=== PATIENT | male | born 1945 | race Caucasian/White ===

== ENCOUNTER 2019-12-12 08:47 | Outpatient (CLI) | payer MEDICARE, SELFPAY ==
--- NOTE | ~2019-12-12 | US_ITS ---
EXAMINATION: US aorta DATE: 12/12/2019 09:53 CDT INDICATION: Abdominal aortic aneurysm screening. Hypertension. Diabetes. High cholesterol. TECHNIQUE: Grayscale, color Doppler, and pulsed Doppler images of the aorta and common iliac arteries were obtained. COMPARISON: None. FINDINGS: The proximal aorta measures 2 cm greatest sagittal dimension. The mid aorta measures 2 cm greatest sa gittal dimension. The distal aorta measures 2 cm greatest sagittal dimension. The right common regulatory internship al iliac artery measures 1.5 cm. The left common iliac artery measures 1.3 cm. IMPRESSION: 1. Normal caliber aorta without evidence for aneurysm. Reviewed, dictated and finalized at [facility].
== END 2019-12-12 08:48 | disposition home or self-care (01) ==
PROVIDERS: PCP Family Medicine; Visit Provider Family Medicine
DX: Z13.6 Encounter for screening for cardiovascular disorders (principal)
CPT/HCPCS: 76775

== ENCOUNTER 2020-11-25 13:49 | Outpatient (CLI) | payer MEDICARE, SELFPAY ==
--- NOTE | ~2020-11-25 | CT_ITS ---
EXAMINATION: CT abdomen pelvis wo con DATE: 11/25/2020 14:14 INDICATION: Bilateral flank pain for 4 to 5 months TECHNIQUE: Computed tomography (CT) of the abdomen and pelvis was performed without intravenous contr ast. Automated exposure control and iterative reconstruction technique were employed. Exam dose: 285 .40 mGy-cm total exam DLP. COMPARISON: None. FINDINGS: There is mild discoid atelectasis or scarring in the right lower lobe. No infiltrate or con solidation at the lung bases. Calcified left lower lobe pulmonary granuloma. Calcified bilateral julia r nodes. Normal heart size. Coronary artery calcification. No pericardial or pleural effusion. 1.3 cm right hepatic dome cyst. Otherwise no space-occupying mass lesion of the liver, spleen, pancre as, adrenal glands or kidneys is evident on this limited noncontrast examination. No bile duct or pancreatic duct dilatation or pancreatic calcification. A calcified splenic granuloma is noted. No splenomegaly. The gallbladder is unremarkable. There is lobularity of the renal outlines which may be due to persistent lobation or alternativ tera chronic pyelonephritis. No urinary tract calculus or hydroureteronephrosis is detected. The urinary bladder is unremarkable. The appendix is not visualized. There are numerous diverticula of the sigmoid and descending colon and to a lesser extent ascending c olon. No CT evidence of diverticulitis. No bowel obstruction, bowel wall thickening, pneumatosis or i ntraperitoneal free air is detected. The prostate gland is unremarkable. There is atherosclerotic calcification but normal caliber of the abdominal aorta. No intraperitoneal or retroperitoneal or pelvic mass lesion or adenopathy or ascites is detected. There are extensive degenerative changes of the thoracic and lumbar spine. No suspicious osteolytic o r osteoblastic lesions are noted. IMPRESSION: No urinary tract calculus or hydroureteronephrosis 1.3 cm right hepatic dome cyst Diverticulosis of left and right colon; no CT evidence of diverticulitis Reviewed, dictated and finalized at [facility]. Reviewed, dictated and finalized at [facility].
--- NOTE | ~2020-11-25 | XR_ITS ---
EXAMINATION: XR abdomen/kub 1V EXAM DATE: 11/25/2020 14:19 INDICATION: Bilateral flank pain for 4 months. TECHNIQUE: Frontal projection of the upper abdomen, frontal projection lower abdomen/pelvis for inter pretation. Correlation is made to CT abdomen pelvis same date. FINDINGS: There is expected amount of colonic stool and gas. No small bowel dilation, nonobstructiv e bowel gas pattern. Calcifications in the pelvis are believed to be phleboliths. There are no susp icious calcifications identified. There is no organomegaly suspected. Moderate to severe thoracolu mbar spondylosis. Lung bases are clear. IMPRESSION: Unremarkable abdomen x-ray exam. Reviewed, dictated and finalized at location [facility].
== END 2020-11-25 13:50 | disposition home or self-care (01) ==
PROVIDERS: PCP Family Medicine; Visit Provider Nurse Practitioner Adult Health
DX: R10.9 Unspecified abdominal pain (principal); K57.30 Diverticulosis of large intestine without perforation or abscess without bleeding
CPT/HCPCS: 74018; 74176